=== PATIENT | female | born 1955 | race Caucasian/White ===

== ENCOUNTER 2018-06-17 06:09 | Inpatient (IN) ==
[~2018-06-17 06:09] MED LIST: LIDOCAINE W/ SODIUM BICARB 0.5 ML SYR ONE; LIDOCAINE W/ SODIUM BICARB 0.5 ML SYR SUBD ONE; Lactated Ringers 1,000 ML PRIMARY IV ONE; Nasal Sanitizer POPSWAB ampule 3 AMP (Nozin) PREOP DOSE ENOS SCH; Sodium Chloride 0.9% 250 ML ONE; Vancomycin Inj 1gm vial ONE; ceFAZolin Inj 2gm (Premix) 2 GM/50 ML BAG IV ONE
[2018-06-17] MEDS ORDERED: MIDAZOLAM 5 MG/1 ML ONE (06:45)
[2018-06-17] MEDS ORDERED: Propofol 1,000 MG/100 ML VIAL IV ONE ×2 (06:45→10:45)
[2018-06-17] MEDS ORDERED: fentaNYL Inj 250 MCG/5 ML VIAL ONE (06:45)
[2018-06-17] MEDS ORDERED: REMIFENTANIL 1 MG/1 ML IV ONE (06:46)
[2018-06-17] MEDS ORDERED: REMIFENTANIL HCL 2 MG VIAL IV ONE (06:46)
[2018-06-17] MEDS ORDERED: Sodium Chloride 0.9% vial 10 ML ONE (06:58)
[2018-06-17] MEDS ORDERED: LIDOCAINE HCL 2 % 10 ML JELLY URO-JECT TOPICAL ONE ×2 (06:58→08:41)
[2018-06-17] MEDS ORDERED: BUPIVACAINE 0.25% W/ EPI - 10 ML VIAL ONE (06:59)
[2018-06-17] MEDS ORDERED: BACITRACIN 50,000 UNIT VIAL IRRIG ONE (06:59)
[2018-06-17] MEDS ORDERED: DEXAMETHASONE PF 10 MG/1 ML VIAL ONE (07:08)
[2018-06-17] MEDS ORDERED: ONDANSETRON 4 MG/2 ML VIAL ONE ×2 (07:09→11:04)
[2018-06-17] MEDS ORDERED: SCOPOLAMINE HYDROBROMIDE 1.5 MG - 1 EACH PATCH TRANSDERM ONE (07:09)
[2018-06-17] MEDS ORDERED: PROPOFOL 10 MG/1 ML (200 MG/20 ML) VIAL IV ONE (07:19)
[2018-06-17] MEDS ORDERED: Lactated Ringers 1,000 ML PRIMARY IV ONE ×2 (07:32→12:51)
[2018-06-17] MEDS ORDERED: KETAMINE 100 MG/1 ML - 5 ML ONE (08:15)
[2018-06-17] MEDS ORDERED: ePHEDrine Inj 50 MG/ML AMP ONE (08:34)
--- NOTE | 2018-06-17 11:44 | CRNA.PROGR ---
Anesthesia Recovery Phase I - Post Anesthesia Evaluation Patient's Condition on Arrival in Phase I: Stable Pain Level: 1
--- NOTE | 2018-06-17 11:44 | CRNA.PROGR ---
Anesthesia Time - Procedure/Recovery Time Start Date: 06/17/18 End Date: 06/17/18 Anesthesia : Time In: 07:29 Anesthesia : Time Out: 11:37 Anesthesia : Total Time: 248 - Total Anesthesia Time Total Anesthesia Time (minutes): 248 - Other Weight: 57.153 kg Height: 5 ft 3 in Body Mass Index (BMI): 22.3 Physical Status: P2 Anesthesia Type: General Anesthesia : ET (TIVA)
[2018-06-17] MEDS ORDERED: LIDOCAINE W/ SODIUM BICARB 0.5 ML SYR SUBD PRN (11:45)
[2018-06-17] MEDS ORDERED: Prochlorperazine Edisylate Inj 10mg/2ml vial IVP PRN (11:46)
[2018-06-17] MEDS: HYDROmorphone 2 MG/1 ML IVP PRN ×3 (12:00→12:41)
--- NOTE | 2018-06-17 12:32 | GEN.OPNOTE ---
Operative Note Surgery Date: 06/17/18 Preoperative Diagnosis: 1. Neck pain. 2. Left C5/C6 radiculopathy. 3. Multilevel cervical degenerative disc disease most advanced at C4-5 and C5-6. 4. Multilevel cervical spondylosis with facet arthropathy and hypertrophy C4-5 and C5-6, most prominent on the left at the former level and on the right at the latter level. 5. Prominent left C4-5 uncal osteophyte producing severe left C5 neural foraminal stenosis. 6. Diffuse disc osteophyte complex with super imposed uncal osteophytes bilaterally larger on the right producing moderate bilateral C6 neural foraminal stenosis Postoperative Diagnosis: 1. Neck pain. 2. Left C5 radiculopathy with possible component of a left C6 radiculopathy. 3. Multilevel cervical degenerative disc disease most advanced at C4-5 and C5-6. 4. Multilevel cervical spondylosis with facet arthropathy and hypertrophy C4-5 and C5-6, most prominent on the left at the former level and on the right at the latter level. 5. Prominent left C4-5 uncal osteophyte producing severe left C5 neural foraminal stenosis. 6. Diffuse disc osteophyte complex with super imposed uncal osteophytes bilaterally larger on the right producing moderate bilateral C6 neural foraminal stenosis Procedure: 1.) C4-5 anterior cervical discectomy with removal of the posterior longitudinal ligament and foraminotomies bilaterally for decompression of the cervical spinal canal and neuroforamen and exiting nerve roots bilaterally; arthrodesis, anterior interbody C4-5. (CPT code: 85901). 2.) C5-6 anterior cervical discectomy with removal of the posterior longitudinal ligament and foraminotomies bilaterally for decompression of the cervical spinal canal and neuroforamen and exiting nerve roots bilaterally; arthrodesis, anterior interbody C5-6. (CPT code: 86431). 3.) Insertion of a 7 mm x 17 mm x 14 mm Tritanium C titanium anterior cervical cage filled in the center with DBM putty into the C4-5 interspace for fusion of the C4-5 interspace. (CPT code: 27789). 4.) Insertion of a 7 mm x 17 mm x 14 mm Tritanium C titanium anterior cervical cage filled in the center with DBM putty into the C5-6 interspace for fusion of the C5-6 interspace. 5.) Anterior cervical plating, C4-C6 using a 2 level, 6- hole, 28 mm [place] Aviator titanium anterior cervical plate affixed to the C4 vertebral body with 4.0 x 16 mm variable angle titanium anterior cervical screws and to the C5 vertebral body using 4.0 x 14 mm variable angle titanium anterior cervical screws and to the C6 vertebral body using 4.0 x 14 mm fixed angle titanium anterior cervical screws. (CPT code: 15430). 6.) Use of 2.5 cc Katherine BIO DBM Putty Plus with cancellous (allograft) for filling of the anterior cervical cages. (CPT code: 98992). 7.) Use of the operative microscope for the the microsurgical techniques used for the performance of the C4-5 and C5-6 discectomies and osteophytectomies. (CPT code: 21920). 8.) Use of intra-operative fluoroscopy for localization of the correct surgical levels and for confirmation of the final position of the intervertebral cages and final confirmation of anterior cervical hardware elements. 9.) Use of intra-operative neuromonitoring including free running EMG's, SSEP's, and MEP's. Surgeon: Kwasi Ba MD Garden Worker: FRANCESCO Fletcher Anesthesia Provider: Rick Mccary CRNA Anesthesia Type: General Estimated Blood Loss (mL): 30 Fluids: See anesthesia record Pathology: None Indications: Ms. Golden is a 63 year old woman with neck and left arm pain that started in November of this year. She had an MRI scan of the cervical spine that demonstrated multilevel cervical degenerative disc disease most advanced at C4-5 and C5-6. The study demonstrated anterolisthesis of C4 and C5 and retrolisthesis of C5 and C6. The study demonstrated a prominent left uncal osteophyte at the C4-5 level producing severe neural foraminal stenosis at this level. The study demonstrated a broad based disc/osteophyte complex at C5-6 with super imposed uncal osteophytes bilaterally larger on the right producing bilateral moderate neural foraminal stenosis. She had x-ray images demonstrating loss of disc space height at C4-5 and C5-6, severe at the latter level, with a posterior disc/osteophyte complex at C5-6, anterolisthesis of C4 and C5 and retrolisthesis of C5 and C6. There was straightening of the normal cervical lordosis. She had EMG/NCV studies of the bilateral upper extremities that demonstrated evidence of a left C6 radiculopathy. Ms. Golden failed expectant management and her symptoms failed to improve with other non-operative therapies. She wished to proceed with surgical treatment for her symptoms. She presents today for her surgical procedure, a C4-5 and C5- 6 anterior cervical discectomy and fusion. Findings: 1.) Diffuse prominent disc/osteophyte complexes, C4-5 & C5-6. 2.) Uncovertebral hypertrophy C4-5 on the left and C5-6 bilaterally. 3.) Severe left C5 and C6 neuroforaminal stenosis. Complications: None Operative Summary: Miss Golden was met in the preoperative area. Her surgical history and physical was reviewed. The patient stated that she had not experienced any manuel ges in her symptoms or her medical history since the date of her surgical history and physical performed in clinic on 05/31/2018. We reviewed the procedure to be performed and we were in agreement on the procedure to be performed and this matched what was written on the patient's consent form. Any questions that Mrs. Golden or her had were answered before she was taken back to the operating room suite. Miss Golden was brought back to the operating room suite. She was moved over onto the surgical bed in supine position. General anesthesia was induced by the anesthesia staff and she was intubated. A Ellis catheter was placed or bladder for the procedure. She had pneumatic compression hose placed on her lower legs bilaterally. Her head was placed on a gel ring and rolled up surgical towels were placed in the intrascapular area and under her shoulders bilaterally. Her arms are gently tucked at her sides. All bony prominences were well padded. Her shoulders were gently retracted with surgical tape. The C-arm fluoroscopy unit was used to help localize the skin incision for the approach to the intended surgical level. The skin was marked along the medial border of the sternocleidomastoid muscle with a skin marker. Miss Golden was prepped and draped in the usual and standard fashion. She was given 2 g of Ancef and a gram of vancomycin IV for perioperative antibiosis. She was given 8 mg of Decadron IV. A standard surgical timeout was performed identifying the correct patient, the correct procedure, and the correct equipment being available for the procedure. The intended skin incision was injected subcutaneously with quarter percent Marcaine with 1 in 200,000 epinephrine. 3 mL local anesthetic was used. The skin was incised with a 10 blade scalpel and all dermal and superficial bleeding points controlled with bipolar cautery. Dissection was continued down through the subcutaneous tissue to the level of the platysma muscle. The platysma muscle was incised with the Metzenbaum scissors in the direction of the skin incision. This allowed identification the medial border of the sternocleidomastoid mastoid muscle. Further dissection identified the omohyoid muscle. Continued dissection was performed medial to the sternocleidomastoid muscle and rostral to the omohyoid muscle in both a sharp and blunt fashion down to the pre-vertebral fascia. The carotid artery was palpated to be lateral to the dissection plane. Cloward hand-held retractors were used to retract and protect the soft tissues while the prevertebral fascia was dissected with a Kitner. Once the disc space became exposed a bent spinal needle was placed into the disc space and the level was localized as the C4-5 level, one of the intended surgical levels with lateral fluoroscopy. Continued dissection of the prevertebral fascia was performed exposing the C4, C5, and C6 vertebral bodies. The medial border of the longus coli muscle was dissected with bipolar cautery with insulated tip turned down to a low setting from C4-C6 bilaterally. The hand-held Cloward retractors were then replaced with the v belt inspector self-retaining retractor system which was first placed at the C4-5 level to expose this level and protect the soft tissues at this level. A 12 mm distraction pin was placed into the C4 vertebral body and another was placed into the C5 vertebral body. The operative microscope was brought into the surgical field and used for microsurgical techniques used for the C4-5 discectomy. An annulotomy was performed with a 15 blade scalpel and disc material was removed with a pituitary rongeur. Additional disc and cartilaginous endplate was loosened in the disc space using a small straight curette with the fragments being removed with a pituitary rongeur. The high-speed [employer] drill with a matchstick bit was used to decorticate the C4 and C5 endplates preparing the endplates for fusion. The same drill with the same bit was used to drill away the prominent diffuse osteophytes along the posterior inferior aspect of the C4 vertebral body and in the posterior superior aspect of C5 vertebral body as well as the uncovertebral joints bilaterally which was quite hypertrophied on the left. Foraminotomies were performed bilaterally with the same drill with same bit. A nerve hook was used to define the plane between the posterior longitudinal ligament and the dura. The posterior longitudinal ligament was completely removed with small Kerrison punches. The same instruments were used to extend the foraminotomies bilaterally that had been started with the high-speed drill with a matchstick bit. Excellent decompression of the spinal canal, neuroforamen, and exiting nerve roots was assured both by visual inspection as well as by palpation with a nerve hook underneath the vertebral bodies and out the neuroforamen bilaterally. The interspace was irrigated with bacitracin irrigation. FloSeal hemostatic agent was placed over all exposed dural elements. The interspace was sized the appropriate size anterior cervical cage. A 7 mm x 14 mm x 17 mm Tritanium C titanium anterior cervical cage was selected and filled in the center with [place] BIO DBM Putty Plus with cancellous (allograft) and then inserted into the C4-5 interspace with the graduate recruiter. The cage was gently countersunk with a bone tamp and mallet. The cage obtained good purchase between the C4 and C5 endplates. The final position of the cage was confirmed with lateral fluoroscopy. The C4 Ramer distraction pin was removed and bony bleeding was controlled with FloSeal surgical maria ines. The Atkinson self-retaining retractor system was removed and placed across the C5-6 level for the exposure this level and the protection of the soft tissues at this level. The Ramer distraction pin was placed into the C6 vertebral body. The operative microscope was used for this microsurgical techniques used for the C5-6 discectomy. An annulotomy was performed with a 15 blade scalpel and disc material was removed with a pituitary rongeur. This level was quite collapsed so the remainder of the discectomy was performed with the high-speed drill with a matchstick bit. The same drill bit were used to decorticate the C5 and C6 endplates preparing the endplates for fusion. The same drill with the same bit was used to drill away with diffuse osteophytes along the posterior inferior aspect of the C5 vertebral body and the posterior superior aspect of the C6 vertebral body as well as to drill away the uncovertebral joint hypertrophy identified bilaterally. Foraminotomies were performed bilaterally with the same drill with the same bit. A nerve hook was used to define the plane between the posterior longitudinal ligament and the dura. The posterior longitudinal ligament was completely removed with small Kerrison punches. The same instruments were used to extend the foraminotomies bilaterally that had been started with the high-speed drill with a matchstick bit. Excellent decompression of the spinal canal, neuroforamen, and exiting nerve roots was assured both by visual inspection as well as by palpation with a nerve hook underneath the vertebral bodies and out the neuroforamen bilaterally. The interspace was irrigated with bacitracin irrigation. FloSeal hemostatic agent was placed over all exposed dural elements. The interspace was sized the appropriate size anterior cervical cage. A 7 mm x 14 mm x 17 mm Tritanium C titanium anterior cervical cage was selected and filled in the center with Katherine BIO DBM Putty Plus with cancellous (allograft) and then inserted into the C5-6 interspace with the graduate recruiter. The cage was gently countersunk with a bone tamp and mallet. The cage obtained good purchase between the C5 and C6 endplates. The final position of the cage was confirmed with lateral fluoroscopy. The Ramer distraction pins in the C5 and C6 vertebral bodies were removed. Bony bleeding was controlled FloSeal and surgical patties. The v belt inspector self- retaining retractor system was removed and placed in the center portion of the surgical dissection to provide the proper exposure needed for the instrumentation portion of the procedure. Any remaining C4, C5, or C6 anterior osteophytes were removed with the large Leksell rongeur as well as with the high speed drill with the matchstick bit. The appropriate size anterior cervical plate was selected both by visual inspection as well as by lateral fluoroscopy. A 2 level, 6 hole, 28 mm Katherine aviator titanium anterior cervical plate was selected and affixed to the C4 vertebral body using 4.0 mm x 16 mm variable angle titanium anterior cervical screws, and to the C5 vertebral body using 4.0 mm x 14 mm variable angle titanium screws, into the C6 vertebral body using 4.0 mm x 14 mm fixed angle titanium anterior cervical screws. Ms. Golden's bone was noted to be somewhat soft but all screws obtained good purchase in the vertebral body bone. The locking mechanism was then deployed at each level and visual inspection confirmed that the locking mechanism deployed across each of the screw heads at each level bilaterally. The v belt inspector self-retaining retractor system was removed from the surgical site. Final AP and lateral fluoroscopic images were obtained. The morrow of the dissection plane were inspected for any bleeding points. Any identified were coagulated with bipolar cautery. The surgical site was copiously irrigated with bacitracin irrigation allowing the irrigant to sit to again inspect for any bleeding points with none be identified. A medium RAMOS drain was placed into the surgical site. The closure portion of the procedure was begun. The platysmal muscle was reapproximated with 3-0 Vicryl suture in an interrupted fashion. The dermis and superficial subcutaneous tissue was reapproximated with 3-0 Vicryl suture in an inverted interrupted fashion. The final layer of closure was performed with 4-0 Monocryl in a running subcuticular fashion. The incision was cleansed with a bacitracin soaked sponge and dried with a sterile dry sponge. Steri-Strips were placed across the incision. The incision was dressed with a Mepilex dressing. The surgical drain was secured with suture. The drain site was dressed. All surgical drapes removed from Ms. Golden. She was carefully moved over onto the PACU stretcher. She was awoken and extubated by the anesthesia staff. She was taken to the recovery room in stable condition. All surgical counts reported as correct by the scrub and circulating personnel. A physician's business office assistant, Ms. Mahi Corbin PA-C, assisted with the procedure including the exposure and closure portions of the procedure. She also provided irrigation and suctioning throughout the procedure.
[2018-06-17] MEDS ORDERED: Fleet Enema 133ml RECTAL PRN (13:22)
[2018-06-17] MEDS ORDERED: Vancomycin-PHA to Dose IV SCH (13:22)
[2018-06-17] MEDS ORDERED: DIAZEPAM 5 MG TABLET PO PRN (13:22)
[2018-06-17] MEDS ORDERED: ONDANSETRON 4 MG/2 ML VIAL IVP PRN (13:22)
[2018-06-17] MEDS ORDERED: HYDROmorphone 2 MG TABLET PO PRN ×2 (13:22→23:59)
[2018-06-17] MEDS ORDERED: BISACODYL 5 MG TABLET PO PRN (13:22)
[2018-06-17] MEDS ORDERED: MAGNESIUM 400 MG/5 ML - 30 ML (MILK OF MAGNESIA) PO PRN (13:22)
[2018-06-17] MEDS ORDERED: DOCUSATE 100 MG CAPSULE PO PRN (13:22)
[2018-06-17] MEDS ORDERED: Ondansetron ODT Tab 4 MG TAB PO PRN (13:22)
[2018-06-17] MEDS ORDERED: ACETAMINOPHEN 325 MG TABLET PO PRN (13:22)
[2018-06-17] MEDS ORDERED: MAGNESIUM CITRATE 296 ML SOLUTION PO PRN (13:22)
[2018-06-17] MEDS ORDERED: PROMETHAZINE 25 MG/1 ML VIAL IM PRN (13:22)
[2018-06-17] MEDS: Prochlorperazine Edisylate Inj 10mg/2ml vial IVP PRN (14:30)
[2018-06-17] MEDS: Dexamethasone Tab 4 MG TABLET PO SCH ×2 (15:26→19:58)
[2018-06-17] MEDS: HYDROmorphone 2 MG TABLET PO PRN ×2 (15:27→19:58)
--- NOTE | 2018-06-17 15:48 | PDOC(PROG) ---
General Note Progress Note: patient seen post operatively no chest pain, SOB, N/V neck pain currently controlled has PMH of hypothyroidism, hypercholesterolemia, and chronic neck pain with what sounds like cervical radiculopathy for her surgery today. Has had surgeries of prior bladder surgery as well as neck surgery today. Does not smoke or drink. . Has children. On exam, Vital Signs - Last Taken Temperature 97.6 F 06/17/18 14:51 Pulse Rate 67 06/17/18 15:35 Respiratory Rate 16 06/17/18 15:35 Blood Pressure 126/79 06/17/18 15:35 Pulse Ox 99 06/17/18 15:35 In general no acute distress, Heart is regular rate and rhythm Lungs are clear to auscultation bilaterally with nonlabored breathing, Abdomen is soft and nontender Neck has a right side dressing in place that is clean, dry, intact and there does not appear to be a lot of swelling. Assessment and plan and recommendations 1. Hypothyroidism 2. Hypercholesterolemia Plan resume home medications Hospitalist service will advise on medical issues from a distance during this hospital stay and we are always available if there is any acute medical needs. Thank you for this consult.
[2018-06-17] MEDS: ceFAZolin Inj 1 GM in Sodium Chloride 0.9% 100 ML IV SCH ×2 (16:34→23:54)
--- NOTE | 2018-06-17 18:57 | NEURO.PROG ---
Subjective Post Op Day: 0 Pain Management: PO Ellis Catheter: Yes Diet: Regular Ambulating: Yes Additional Details: Awake and alert, had been sleeping some since surgery. Appears comfortable in floor bed. No specific complaints. Can't tell with left arm better yet. Burping some with drinking liquids. Neck soft and flat. Dressing clean, dry, and intact. Moving all extremities well. PLAN: 1.) Continue post-operative antibiotics. 2.) Post-operative pain control. 3.) Advance diet. 4.) Mobilize. Objective : Data - Vital Signs Vital Signs and I&O: Vital Signs - Last Taken Temperature 97.6 F 06/17/18 16:35 Pulse Rate 79 06/17/18 16:35 Respiratory Rate 16 06/17/18 16:35 Blood Pressure 126/74 06/17/18 16:35 Pulse Ox 100 06/17/18 16:35 Intake and Output (24hr x 4 totals) 06/15/18 06/16/18 06/17/18 06/18/18 05:59 05:59 05:59 05:59 Intake Total 4017 / 4017 Output Total 1495 / 1495 Balance 2522 / 2522
[2018-06-17] MEDS ORDERED: Simvastatin Tab 10 MG TAB PO SCH (21:00)
[2018-06-18] MEDS ORDERED: HYDROmorphone 2 MG/1 ML IVP ONE
[2018-06-18] MEDS: Prochlorperazine Edisylate Inj 10mg/2ml vial IVP PRN ×2 (00:11→07:01)
[2018-06-18] MEDS: Dexamethasone Tab 4 MG TABLET PO SCH ×2 (00:31→07:01)
[2018-06-18] MEDS ORDERED: LEVOTHYROXINE 100 MCG TABLET PO SCH (05:30)
[2018-06-18 06:01] LABS: Hematocrit [HCT] 35.8 % (37.0-47.0); Hemoglobin [HGB] 11.3 g/dL (12.0-16.0); MEAN CORPUSCULAR HEMOGLOBIN 29.1 PG (27-31); MEAN CORPUSCULAR HGB CONC 31.6 g/dL (33-37); MEAN CORPUSCULAR VOLUME 92.3 FL (81-99); MEAN PLATELET VOLUME 10.6 FL (7.4-12.2); RED BLOOD COUNT 3.88 10^6/uL (4.20-5.40)
[2018-06-18 06:17] LABS: BLOOD UREA NITROGEN 11 mg/dL (7-22); BUN/CREATININE RATIO 15.71 (6-20)
--- NOTE | 2018-06-18 06:23 | NEURO.PROG ---
Subjective Post Op Day: 1 Pain Management: PO Ellis Catheter: No Diet: Regular Ambulating: Yes Additional Details: Awake and alert. No specific complaints. Left arm better, some discomfort in the right shoulder. Neck - soft/flat. Dressing - clean, dry, intact. Full/strong manager civil, biceps, triceps, deltoid strength bilaterally. Can easily put hands on head and straight up overhead with ease. Full/strong dorsiflexion/plantarflexion bilaterally. Patient wishes to be discharged home today. PLAN: Complete post-operative antibiotics. Continue to manage post-operative pain and nausea. Slowly advance diet as tolerated. Discharge to home today if pain well controlled, nausea controlled, and patient feels comfortable with discharge. Objective : Data - Labs CBC and BMP: 06/18/18 04:45 - Vital Signs Vital Signs and I&O: Vital Signs - Last Taken Temperature 98.9 F 06/18/18 05:00 Pulse Rate 81 06/18/18 05:00 Respiratory Rate 16 06/18/18 05:00 Blood Pressure 111/68 06/18/18 05:00 Pulse Ox 90 06/18/18 05:00 Intake and Output (24hr x 4 totals) 06/16/18 06/17/18 06/18/18 06/19/18 05:59 05:59 05:59 05:59 Intake Total 5172 / 5172 Output Total 2570 / 2570 Balance 2602 / 2602
[2018-06-18 06:42] LABS: BAND NEUTROPHILS % 1 % (0-10); NEUTROPHILS % (MANUAL) 86 % (50-80)
[2018-06-18 06:43] LABS: BASOPHILS % (MANUAL) 0 % (0-1); EOSINOPHILS % (MANUAL) 0 % (0-8); MONOCYTES % (MANUAL) 5 % (0-12); PLATELET MORPHOLOGY COMMENT NORMAL MORPHOLOGY (NORM); RBC MORPHOLOGY COMMENT NORMAL MORPHOLOGY (NORM); WBC MORPHOLOGY COMMENT SEE COMMENTS (NORM)
[2018-06-18] MEDS ORDERED: PANTOPRAZOLE 40 MG TABLET PO SCH ×2 (07:00)
--- NOTE | 2018-06-19 13:06 | OTI REPORT ---
Thank you for the referral of Latanya Golden. She was seen on 06/18/18 for an occupational therapy inpatient evaluation status post cervical fusion. SUBJECTIVE: The patient is a 63-year-old female who had a cervical fusion yesterday. She reports that she is feeling much better today with minimal pain. The patient lives at home with her who is able to provide assistance. She has four steps to the entrance of her home. At prior level of function the patient was independent. PAST MEDICAL HISTORY: Past medical history can be found in the patient's medical record. OBJECTIVE FINDINGS: General observations: The patient had her neck brace on prior to the therapist's arrival. Transfers: The patient demonstrated the ability to complete a sit to stand transfer functionally with stand by assistance only. Ambulation: The patient ambulated with stand by assistance only. Activities of daily living: The patient was already dressed with minimal help per report from her . The patient did report that she might use a processing specialist at home for reaching items on the floor. She did not want the sock aide at this time. ASSESSMENT: The patient's rehab potential is good. Problem List: Decreased ability to complete lower extremity dressing. TREATMENT PLAN: Patient will be discharged from occupational therapy services due to meeting goals. INITIAL TREATMENT: Treatment today consisted of the initial evaluation only. SUSAN
--- NOTE | 2018-06-19 13:19 | PTI REPORT ---
Thank you for the referral of Latanya Golden. She was seen on 06/18/18 for an inpatient evaluation status post cervical fusion. SUBJECTIVE: The patient is a 63-year-old female who underwent a cervical spine fusion by Dr. Ba yesterday. The patient was seen in her room. She was very tired from some of the pain medications but stated her pain was a 1 to 2/10 on the verbal analog scale (0=no pain, 10=worst pain) this morning. PAST MEDICAL HISTORY: Past medical history can be found in the patient's medical record. OBJECTIVE FINDINGS: General observations: The patient was placed in her cervical collar and she and her were instructed on how to don and doff the appliance correctly. Bed mobility: The patient was able to transfer in and out of bed independently. Ambulation: The patient was able to ambulate the hallways of the nursing station freely without any assistive devices or balance issues. The patient also ascended and descended stairs without any issues. ASSESSMENT: The patient has met all physical therapy goals and will be discharged by physical therapy. TREATMENT PLAN: Patient will be discharged from physical therapy services secondary to meeting all goals. INITIAL TREATMENT: Treatment today consisted of the initial evaluation only. SUSAN
[2018-06-19 18:07] VITALS: BP 108/67; RESP 20; TEMP 99.3; O2SAT 96
== END 2018-06-18 11:44 | disposition home or self-care (01) | DRG 473 ==
LOC: OPS 06:09 → MED/SURG 12:32
PROVIDERS: ADMIT Neurological Surgery; ATTEND Neurological Surgery